=== PATIENT | female | born 1970 | race Caucasian/White ===

== ENCOUNTER 2017-08-29 08:13 | Emergency (ER) | payer OTHER, BC ==
[~2017-08-29] VITALS: Ht 167.6 cm; Wt 102.1 kg
[~2017-08-29 08:13] MED LIST: AMOCLA875 PO; Augmentin 875-1 EACH PO; DESL5; DIPH25 PO; LEVSOD125 PO; NAPR550 PO; OXYACE5T PO; Pepcid20 MG PO; Prednisone20 MG PO; RXNAPNA550 PO; VERAMIST
[2017-08-29] MEDS ORDERED: ALPR.5 PO (08:28)
[2017-08-29] MEDS ORDERED: Fiorinal Capsu1 EACH PO (08:28)
[2017-08-29] MEDS ORDERED: IBUP800 PO ×2 (08:29→09:12)
== END 2017-08-29 09:53 | disposition home or self-care (01) ==
LOC: ER 08:13
DX: S80.02XA Contusion of left knee, initial encounter (principal); R07.81 Pleurodynia; Z88.5 Allergy status to narcotic agent; Z88.7 Allergy status to serum and vaccine; Z88.6 Allergy status to analgesic agent; Z79.899 Other long term (current) drug therapy; E03.9 Hypothyroidism, unspecified; W19.XXXA Unspecified fall, initial encounter
CPT/HCPCS: 29505; 73562-LT; 99283